=== PATIENT | female | born 1935 | race Caucasian/White ===

== ENCOUNTER 2016-08-22 11:41 | Inpatient (IN) | payer OTHER, BC ==
[~2016-08-22] VITALS: Ht 167.6 cm; Wt 42.6 kg
--- NOTE | 2016-08-22 11:49 | NUR ---
PT WHEELCHAIR ASSITED TO BED 1 AT THIS TIME.
--- NOTE | 2016-08-22 11:52 | NUR ---
80F BIB DAUGHTER IN LAW C/O LEFT FACIAL DROOP X [phone] TODAY; DAUGHTER IN LAW STATES SHE WAS LAST SEEN AT [facility] LAST NIGHT; PT NOTED W/ SEVERE WEAKNESS TO LEFT SIDE OF BODY AND LEFT FACIAL DROOP; A&OX4 W/ SLURRED SPEECH; PT ABLE TO FOLLOW COMMANDS AT THIS TIME; BL LUNG SOUNDS CLEAR, RR EVEN/UNLABORED, PT DENIES N/V/D OR PAIN AT THIS TIME; SKIN IS WARM/DRY/INTACT; PT UNABLE TO AMBULATE D/T SEVER LEFT SIDED WEAKNESS; PT PLACED IN GOWN/ON MONITOR, RESTING IN BED W/ HOB ELEVATED AND IN LOWEST POSITION; POSITIONED FOR COMFORT; DAUGHTER IN LAW AT BEDSIDE; ER MD MADE AWARE OF STATUS. WILL CONTINUE TO MONITOR.
--- NOTE | 2016-08-22 11:54 | NUR ---
Patient being evaluated by DR. DELUNA
[2016-08-22 11:56] VITALS: BP 175/58
--- NOTE | 2016-08-22 11:56 | NUR ---
PT STATES DOES NOT WANT OXYGEN AT THIS TIME; O2 SAT 97 % ON ROOM AIR AT THIS TIME; RR EVEN/UNLABORED, WILL CONTINUE TO MONITOR.
--- NOTE | 2016-08-22 12:15 | NUR ---
XRAY AT BEDSIDE.
--- NOTE | 2016-08-22 12:25 | NUR ---
WARM BLANKET PROVIDED TO PT FOR COMFORT.
[2016-08-22] MEDS ORDERED: ASPIRIN 325 MG TAB PO ONE (12:45)
--- NOTE | 2016-08-22 13:10 | NUR ---
CALLED ICU TO GIVE REPORT; HALLIE ALVAREZ WILL CALL BACK; IN ISOLATION AT THIS TIME.
--- NOTE | 2016-08-22 13:18 | NUR ---
PER DIRECTOR ENMANUEL, PT MAY BE RELOCATED TO TELEMTRY; WILL CALL REPORT WHEN OFFICIAL ROOM ASSIGNED. WILL CONTINUE TO MONITOR.
--- NOTE | 2016-08-22 14:17 | NUR ---
REPORT GIVEN TO HALLIE PELAEZ.
--- NOTE | 2016-08-22 14:24 | NUR ---
Patient will be admitted to care of DR. RIOS. Admited to TELEMETRY Will go to room 108B. Belongings list completed. Report to HALLIE PELAEZ.
--- NOTE | 2016-08-22 14:30 | NUR ---
PT ARRIVED TO UNIT FROM ER VIA GURNEY, PT IS AAOX3/4 WITH SLURRED SPEECH AND LEFT SIDED WEAKNESS, PT IS ON ROOM AIR. VS OF TEMP 98.0, BP 144/59, HR 78, RR 20, SAT 96%, SKIN INTACT, DAUGHTER ALEXUS AT BEDSIDE, INITIAL ASSESSMENT COMPLETED, REVIEW PLAN OF CARE WITH PT, PT VERBALIZED UNDERSTANDING, ORIENTED PT TO ROOM AND HOSPITAL ENVIRONMENT. ALL FALL PRECAUTIONS MET, CALL LIGHT WITHIN REACH. WILL CONTINUE TO MONITOR.
[2016-08-22 16:00] VITALS: BP 122/48
--- NOTE | 2016-08-22 16:08 | NUR ---
PT CURRENTLY AWAKE RESTING IN BED, CALL LIGHT WITHIN [facility]. WILL CONTINUE TO MONITOR.
--- NOTE | 2016-08-22 17:45 | NUR ---
PT CURRENTLY SLEEPING, CALL LIGHT WITHIN REACH. WILL CONTINUE TO MONITOR.
--- NOTE | 2016-08-22 18:15 | NUR ---
ALL NEEDS MET, CALL LIGHT WITHIN REACH. WILL CONTINUE TO MONITOR.
--- NOTE | 2016-08-22 19:20 | NUR ---
ENDORSED PLAN OF CARE TO NIGHT NURSE.
[2016-08-22] MEDS ORDERED: ACETAMINOPHEN 325 MG TAB PO PRN (19:45)
[2016-08-22] MEDS ORDERED: ONDANSETRON 4 MG/2 ML VIAL IVP PRN (19:45)
[2016-08-22] MEDS ORDERED: MORPHINE SULFATE 2 MG/ML SYR IVP PRN (19:45)
[2016-08-22] MEDS ORDERED: DOCUSATE SODIUM 100 MG GELCAP PO PRN (19:45)
--- NOTE | 2016-08-22 19:45 | NUR ---
RECEIVED PT IN STABLE CONDITION FROM AM NURSE. AWAKE,ALERT AND ORIENTED X3-4 BUT WITH PERIODS OF FORGETFULNESS. MED SURG PT. BEDREST . WITH NO ACUTE DISTRESS NOTED. ON O2 3L/NC. IVF INFUSING WELL ON THE RT HAND #24. ANOTHER HL ON SAME HAND #24. PLAN OF CARE DISCUSSED AND VERBALIZED UNDERSTANDING. BED ON LOW POSITION . SIDE RAILS UP X2. CALL LIGHT PLACED WITHIN EASY REACH. WILL CONTINUE TO MONITOR.
[2016-08-22] MEDS: ASPIRIN 81 MG TAB.CHEW PO SCH (19:50)
[2016-08-22] MEDS: ATORVASTATIN 20 MG TAB PO SCH (19:50)
--- NOTE | 2016-08-22 19:55 | NUR ---
PT HAS AN OLD THICK SCAB ON THE RT LOWER LEG.
[2016-08-22 20:00] VITALS: BP 153/61
--- NOTE | 2016-08-22 20:00 | NUR ---
APPLIED SCD MACHINE ON BLE ORDERED. PT MADE AWARE OF THE PURPOSE OF THE MACHINE. VERBALIZED UNDERSTANDING.
[2016-08-22] MEDS: NACL 0.9% 1,000 ML IV SCH (20:43)
--- NOTE | 2016-08-22 21:54 | NUR ---
PAGED DR. RIOS FOR MAGNESIUM LEVEL 1.6 DR. ANN SCHOOL PSYCHOLOGIST ASSISTANT . CALLED BACK AND MADE AWARE. WILL DO ORDER.
[2016-08-22] MEDS ORDERED: MAG SULF 2000 MG/WATER PREMIX 50 ML IV SCH (22:00)
[2016-08-22] MEDS ORDERED: ADVAIR DISKUS 21 DSK IH (23:17)
[2016-08-22] MEDS ORDERED: SPIRIVA MD18 MCG/CAP INH (23:17)
[2016-08-22] MEDS ORDERED: SINGULAIR10 MG PO (23:17)
[2016-08-23 00:30] VITALS: BP 155/68
--- NOTE | 2016-08-23 00:38 | NUR ---
PAGED DR. RIOS FOR SHAHBAZ CAROTID US RESULT. ELLIS SAMUELS FLITCH HANGER. WILL WAIT FOR CALL BACK.
--- NOTE | 2016-08-23 00:44 | NUR ---
DR. ANN CALLED BACK .MADE AWARE OF THE RESULT. NO NEW ORDER MADE.
--- NOTE | 2016-08-23 02:30 | NUR ---
MADE ROUNDS. PT IS ASLEEP. NO S/S OF ANY DISCOMFORT NOR DISTRESS NOTED. WILL CONTINUE TO MONITOR.
--- NOTE | 2016-08-23 03:50 | NUR ---
PT HAS BEEN MOVING HER RT LEG. THE SCD WAS PARTLY REMOVED. NOTICED RT LEG SCAB PINK /RED LIKE SCRATCHED AND HAS SCANTY DRAIN. DISCONTINUED RT LOWER LEG SCD.
[2016-08-23 04:00] VITALS: BP 148/66
--- NOTE | 2016-08-23 05:30 | NUR ---
SLEEPING AT THIS TIME. NO S/S OF ANY DISCOMFORT NOR DISTRESS NOTED.
[2016-08-23] MEDS: NACL 0.9% 1,000 ML IV SCH ×2 (07:02→17:43)
--- NOTE | 2016-08-23 07:28 | NUR ---
DR. RIOS AND THE GROUP HERE. MADE AWARE OF THE URINE WITH 4 BACTERIA.
--- NOTE | 2016-08-23 07:30 | NUR ---
ENDORSED PT IN STABLE CONDITION TO AM NURSE.
--- NOTE | 2016-08-23 07:31 | NUR ---
RECEIVED REPORT FROM NIGHT NURSE HALLIE PAL. PATIENT APPEARED TO BE AWAKE, ALERT AND RESTING WELL IN BED. REMAINED CALM. NO SOB OR SIGN OF RESPIRATORY DISTRESS NOTED AT THIS TIME. INITIAL ASSESSMENT DONE. NOTED PATIENT'S FACE DROOPING TO LEFT SIDE, AND LEFT SIDED WEAKNESS. PATIENT ABLE TO MOVE HER RIGHT EXTREMITIES. PATIENT DENIED DISCOMFORT OR PAIN AT THIS TIME. AAOX3 WITH FORGETFULNESS. IV 20G TO RIGHT AC INTACT AND INFUSING WELL WITH IV FLUID, INSTRUCTED PATIENT TO PUSHED CALL LIGHT WITH NEEDED HELPS, PLAN OF CARE AND PAIN MANAGEMENT DISCUSSED, PATIENT VERBALIZED UNDERSTANDING. HEAD OF BED ELEVATED. CALL LIGHT WITHIN REACH. WILL CONTINUE TO MONITOR.
[2016-08-23 08:00] VITALS: BP 118/42
--- NOTE | 2016-08-23 08:20 | NUR ---
PATIENT HAS BEEN SCREENED AND CATEGORIZED HIGH NUTRITION RISK. PATIENT WILL BE SEEN WITHIN 1-2 DAYS OF ADMISSION. 08/23/16-08/24/[address]
[2016-08-23] MEDS: ATORVASTATIN 20 MG TAB PO SCH ×2 (09:00→17:40)
[2016-08-23] MEDS: ASPIRIN 81 MG TAB.CHEW PO SCH (09:00)
[2016-08-23] MEDS ORDERED: MAG SULF 2000 MG/WATER PREMIX 50 ML IV SCH (10:30)
--- NOTE | 2016-08-23 10:46 | NUR ---
PATIENT STILL APPEARED TO BE SLEEPY AND DROWSY. NO SIGN OF DISTRESS NOTED. NO CHANGE IN CONDITION NOTED. HEAD OF BED ELEVATED FOR COMFORT. DAUGHTER AT BEDSIDE. CALL LIGHT WITHIN REACH. WILL CONTINUE TO MONITOR. Addendum: 08/23/16 at 1047 by Trevon Curry RN WRONG PATIENT.
--- NOTE | 2016-08-23 10:48 | NUR ---
PATIENT STILL APPEARED TO BE ASLEEP BUT EASILY AROUSAL TO NAME CALLED. NO SIGN OF DISTRESS NOTED. DENIED ANY DISCOMFORT. HEAD OF BED ELEVATED FOR SAFETY. CALL LIGHT WITHIN REACH. WILL CONTINUE TO MONITOR.
--- NOTE | 2016-08-23 11:14 | NUR ---
OTHER IV INFUSING AT THIS TIME. WILL HANG MAGNESIUM IVPB WHEN FINISHED.
[2016-08-23 12:00] VITALS: BP 139/57
[2016-08-23] MEDS ORDERED: ASPIRIN 325 MG TAB PO SCH ×2 (13:55→17:30)
--- NOTE | 2016-08-23 15:27 | NUR ---
NOTIFIED DR CAMPBELL AND HE AWARE PATIENT'S NEWEST ABNORMAL HEAD CT FINDING AT 1350 08/23/16. MD ALSO AWARE PATIENT IS NPO. LIPITOR WAS NOT GIVEN DUE TO NPO STATUS. NO NEW ORDERS RECEIVED AT THIS TIME.
--- NOTE | 2016-08-23 15:29 | NUR ---
PATIENT RESTING IN BED. NO CHANGE IN CONDITION NOTED. LEFT SIDED WEAKNESS STILL NOTED WITH LEFT FACE DROOPING. MD AWARE.
[2016-08-23 16:00] VITALS: BP 136/67
--- NOTE | 2016-08-23 16:45 | NUR ---
* ST NOTE * Bedside Dysphagia and Oral Mechanism exams completed at bedside with pt's physician and daughter in law present. Pt consenting to evaluation with pt's daughter in law present. See evaluation report for further details. Pt tolerating 6/6 alternating PO trials of puree apple sauce 3-5 CCs at a time via a teaspoon w/out s/s of aspiration as well as exhibiting occasional to no residue in oral cavity after PO intake. Pt tolerating 3/3 successive sips of thin liquid apple juice via a straw as well as 2/2 alternating PO trials of thin liquid apple juice via a cup, but exhibiting delayed residual throat clearing and minimal cough after PO intake of thin liquids. Pt however tolerating 5/5 alternating PO trials of nectar-thick apple juice 3-5 CCs at a time via a teaspoon w/out s/s of aspiration, exhibiting clear voicing WFL w/out wet or gargly vocal quality after PO intake of NTL. Pt, caregiver/qhzedayc-he-qvx and physician education completed regarding results of evaluation; benefits of abiding by aspiration precautions and recommended PO diet consistency; as well as prognosis for improvement; with pt, caregiver/ifhonxda-wo-ehq and physician all agreeable with and verbalizing understanding of clinician's recommendations. Recommend: - PO diet consistency of Puree textures with Leota-thickened liquids for all meals - Close supervision during PO intake to assure aspiration precautions are in place - Assistance with feeding for all meals No further ST follow up recommended at this time. G8996 CK G8997 CJ G8998 CJ NOMS Level 3 Time In/Out: 16:00 - 16:45
[2016-08-23] MEDS ORDERED: ATORVASTATIN 20 MG TAB PO SCH (17:30)
[2016-08-23] MEDS: ASPIRIN 325 MG TAB PO SCH (17:40)
--- NOTE | 2016-08-23 17:41 | NUR ---
DUE PO MEDICATIONS WITH APPLE SAUCE GIVEN, PATIENT TOLERATED WELL. NO ASPIRATION NOTED. NO SIGN OF DISTRESS NOTED. NO CHANGE IN CONDITION NOTED. PATIENT REMAINED CALM. HEAD OF BED ELEVATED. CALL LIGHT WITHIN REACH. WILL CONTINUE TO MONITOR.
--- NOTE | 2016-08-23 19:30 | NUR ---
RECEIVED REPORT FROM RIKI STERLING AT BEDSIDE. PT IS ALERT AWAKE ORIENTED X1 WITH CONFUSION. NO S/S OF RESPIRATORY DISTRESS OR SOB NOTED. NO C/O PAIN OR ANY DISCOMFORT AT THIS TIME. PLAN OF CARE REVIEWED TO PT BUT UNABLE TO COMPREHEND. CALL LIGHT WITHIN REACH. WILL CONTINUE TO MONITOR.
--- NOTE | 2016-08-23 19:30 | NUR ---
ENDORSED PATIENT CURRENT PLAN OF CARE TO NIGHT NURSE HALLIE PAGAN. PATIENT RESTING WELL IN BED WITH NO SIGN OF DISTRESS NOTED.
[2016-08-23 20:00] VITALS: BP 143/66
[2016-08-23] MEDS: SACCHAROMYCES 250 MG CAP PO SCH (20:32)
[2016-08-23] MEDS: levETIRAcetam 1,000 MG in NACL 0.9% 100 ML IV SCH (20:32)
[2016-08-23] MEDS: MONTELUKAST SODIUM 10 MG TAB PO SCH (20:32)
[2016-08-23] MEDS ORDERED: FLUTICASONE 250 MCG/SALMETEROL 50 MCG DISK IH SCH (21:00)
[2016-08-24] VITALS: BP 140/78
--- NOTE | 2016-08-24 00:30 | NUR ---
PT IS ASLEEP RIGHT NOW BUT EASILY AROUSABLE. NO S/S OF ANY DISCOMFORT AT THIS TIME. ALL NEEDS ARE ATTENDED. CALL LIGHT WITHIN REACH. WILL CONTINUE TO MONITOR.
[2016-08-24 04:00] VITALS: BP 125/70
[2016-08-24] MEDS: NACL 0.9% 1,000 ML IV SCH ×2 (04:46→16:23)
--- NOTE | 2016-08-24 05:15 | NUR ---
AM CARE RENDERED. BED LINEN CHANGED. REPOSITIONED PATIENT. KEPT CLEAN AND DRY. CALL LIGHT WITHIN REACH. WILL CONTINUE TO MONITOR.
--- NOTE | 2016-08-24 07:19 | NUR ---
PT HAS NO S/S OF ANY DISCOMFORT. PLAN OF CARE WILL BE ENDORSED TO AM SHIFT NURSE FOR CONTINUITY OF CARE.
--- NOTE | 2016-08-24 07:30 | NUR ---
RECEIVED ON BED AAOX1, CONFUSED, FOLLOWING SIMPLE COMMANDS. NO SOB NOTED. NO C/O PAIN AT THIS TIME. IV TO RT HAND PATENT AND INTACT. CHEST CLEAR. ABDOMEN SOFT, BOWEL SOUNDS PRESENT. BED ON LOW POSITION. BED ALARM ON. INSTRUCTED PT TO CALL FOR ASSISTANCE, CALL LIGHT WITHIN REACH. VERBALIZED PARTIAL UNDERSTANDING.
[2016-08-24 08:00] VITALS: BP 155/53
[2016-08-24] MEDS: levETIRAcetam 1,000 MG in NACL 0.9% 100 ML IV SCH ×2 (08:47→20:07)
--- NOTE | 2016-08-24 10:20 | NUR ---
LEFT AC IV ESTABLISHED FOR IV CONTRAST, GAUGE 20, [place].
--- NOTE | 2016-08-24 10:25 | NUR ---
CALLED PT'S NEXT OF KIN CARLOS LUGO ([phone]) FOR TELEPHONE CONSENT. NO ANSWER, MESSAGE LEFT. AWAITING FOR CALLED BACK.
--- NOTE | 2016-08-24 10:45 | NUR ---
TELEPHONE CONSENT OBTAINED THROUGH TELEPHONE BY PT'S DAUGHTER IN LAW CARLOS LUGO NEXT OF KIN. PROCEDURE'S RISKS AND BENEFITS EXPLAINED, VERBALIZED UNDERSTANDING.
[2016-08-24] MEDS: ASPIRIN 325 MG TAB PO SCH (10:54)
[2016-08-24] MEDS: ATORVASTATIN 20 MG TAB PO SCH (10:54)
[2016-08-24] MEDS: SACCHAROMYCES 250 MG CAP PO SCH ×2 (10:54→20:07)
[2016-08-24 12:00] VITALS: BP 155/71
[2016-08-24] MEDS ORDERED: POTASSIUM CHLORIDE 10 MEQ TABER PO SCH (14:30)
--- NOTE | 2016-08-24 14:47 | NUR ---
08/24/16 RD INITIAL ASSESSMENT COMPLETED PLEASE REFER TO NUTRITION ASSESSMENT UNDER CARE ACTIVITY FOR ESTIMATED NUTRITIONAL NEEDS. RD RECOMMENDATIONS: 1. CONTINUE CARDIAC PUREE THICK LIQUID DIET MEDICALLY APPROPRIATE. 2. ENCOURAGE INCREASED PO INTAKE. --NOTE RN REPORT PT WITH POOR APPETITE 3. IF PT CONTINUES TO HAVE POOR PO INTAKE, CONSIDER ADDING AN ORAL SUPPLEMENT. 4. RD WILL F/U 2-3 DAYS; HIGH RISK PRICILLA DAVALOS, RD
[2016-08-24] MEDS ORDERED: POTASSIUM CHLORIDE 20% 40 MEQ/15 ML UDC PO SCH (15:18)
[2016-08-24] MEDS ORDERED: POTASSIUM CHLORIDE 40 MEQ, LIDOCAINE 1% 25 MG in NACL 0.9% 250 ML IV SCH (15:30)
[2016-08-24 16:00] VITALS: BP 133/64
--- NOTE | 2016-08-24 19:30 | NUR ---
PT AWAKE. NO SOB NOTED. NO COMPLAINTS MADE. FAMILY AT BEDSIDE. ENDORSED TO NEXT SHIFT NURSE FOR CONTINUITY OF CARE.
--- NOTE | 2016-08-24 19:31 | NUR ---
RECEIVED REPORT FROM DAY SHIFT NURSE. PT I AAOX1, FAMILY AT BEDSIDE. HAS NO COMPLAIN OF PAIN. ON ROOM AIR, NO S/S OF RESPIRATORY DISTRESS/DISCOMFORT NOTED. IV SITE IS PATENT AND INTACT. SKIN IS INTACT, WARM TO TOUCH. SCD IN PLACED. PLAN OF CARE DISCUSSED, REENFORCEMENT NEEDED. SAFETY MEASURES CHECKED, CALL LIGHT WITHIN REACH. WILL CONTINUE TO MONITOR.
[2016-08-24 20:00] VITALS: BP 155/79
[2016-08-24] MEDS: MONTELUKAST SODIUM 10 MG TAB PO SCH (20:07)
--- NOTE | 2016-08-24 20:12 | NUR ---
DUE MEDS GIVEN. MEDS INFORMATION WAS GIVEN, BENEFITS AND S/E. PT TOLERATED WELL.
[2016-08-25] VITALS: BP 139/53
--- NOTE | 2016-08-25 | NUR ---
V/S CHECKED AND STABLE. PT HAS NO S/S OF RESPIRATORY DISTRESS/DISCOMFORT NOTED.
[2016-08-25] MEDS: NACL 0.9% 1,000 ML IV SCH ×2 (03:21→14:37)
[2016-08-25 04:00] VITALS: BP 136/64
--- NOTE | 2016-08-25 04:17 | NUR ---
PT IS SLEEPING, NO S/S OF DISTRESS/DISCOMFORT.
--- NOTE | 2016-08-25 06:08 | NUR ---
MORNING CARE DONE. GOWN CHANGED. REPOSITIONED THE PATIENT. NO SIGNS OF DISTRESS NOTED.
--- NOTE | 2016-08-25 07:09 | NUR ---
ENDORSED REPORT TO DAY SHIFT NURSE FOR CONTINUITY OF CARE. PT IS STABLE.
--- NOTE | 2016-08-25 07:10 | NUR ---
RECEIVED REPORT FROM FAMILY RESOURCE MANAGEMENT PROFESSOR HALLIE JOHNSON. PT IS A/O X 1, BEDBOUND. RFA 22G IV INTACT AND PATENT. LAC 20G SL INTACT. RLE HEALED SCAB. NO S/S OF ACUTE CARDIAC/RESPIRATORY DISTRESS OR DISCOMFORT. SAFETY MEASURES IN PLACE. FALL RISK PRECAUTIONS IN PLACE. CALL LIGHT WITHIN REACH. WILL CONTINUE PLAN OF CARE AND CONTINUE TO MONITOR.
[2016-08-25 08:00] VITALS: BP 134/85
[2016-08-25] MEDS: ATORVASTATIN 20 MG TAB PO SCH (08:29)
[2016-08-25] MEDS: SACCHAROMYCES 250 MG CAP PO SCH ×2 (08:29→20:59)
[2016-08-25] MEDS: ASPIRIN 325 MG TAB PO SCH (08:29)
[2016-08-25] MEDS: levETIRAcetam 1,000 MG in NACL 0.9% 100 ML IV SCH ×2 (09:08→21:00)
[2016-08-25] MEDS ORDERED: CLOPIDOGREL 75 MG TAB PO SCH (09:19)
--- NOTE | 2016-08-25 10:12 | NUR ---
PT IS SLEEPING, TIRED FROM PT, WAS ONLY ABLE TO STAND WITH ASSIST. NO S/S OF ACUTE DISTRESS OR DISCOMFORT. CALL LIGHT WITHIN REACH, WILL CONTINUE TO MONITOR.
--- NOTE | 2016-08-25 10:49 | NUR ---
SS NOTE: PER TED FROM [facility] ([phone]), PT CAN GO TO ROOM 29B UNDER DR. Hi GUZMAN UPON DISCHARGE. I SPOKE WITH DTR-IN-LAW/CAREGIVER - CARLOS. SHE WAS MADE AWARE OF PT'S DISCHARGE PLAN AND IS IN AGREEMENT WITH PT GOING TO [facility] UPON DISCHARGE.
[2016-08-25 12:00] VITALS: BP 131/60
--- NOTE | 2016-08-25 12:16 | NUR ---
PT IS SLEEPING. NO S/S OF ACUTE DISTRESS OR DISCOMFORT. CALL LIGHT WITHIN REACH. WILL CONTINUE TO MONITOR.
--- NOTE | 2016-08-25 14:58 | NUR ---
PT IS RESTING. NO S/S OF ACUTE DISTRESS OR DISCOMFORT. CALL LIGHT WITHIN REACH. WILL CONTINUE TO MONITOR.
[2016-08-25 16:00] VITALS: BP 142/67
--- NOTE | 2016-08-25 16:51 | NUR ---
PT IS SLEEPING. NO S/S OF ACUTE DISTRESS OR DISCOMFORT. CALL LIGHT WITHIN REACH. WILL CONTINUE TO MONITOR.
--- NOTE | 2016-08-25 19:12 | NUR ---
ENDORSED TO ASSEMBLY INSPECTOR HALLIE DE LEON. PT IS SLEEPING. PT HAS NO S/S OF ACUTE DISTRESS OR DISCOMFORT. PT IN STABLE CONDITION. CALL LIGHT WITHIN REACH.
--- NOTE | 2016-08-25 19:25 | NUR ---
RECEIVED REPORT FROM JOSHUA RN FOR CONTINUITY OF CARE. PATIENT IS A&OX1/2, EXPLAINED PLAN OF CARE TO PATIENT. SHIFT ASSESSMENT DONE, VS TAKEN STABLE. NO S/S OF RESPIRATORY DISTRESS NOTED ON ROOM AIR. PATIENT DENIES PAIN AT THIS TIME. IV LT AC 20 GAUGE PATENT AND INFUSING FLUIDS WELL. SKIN INTACT. SAFETY/FALL PRECAUTIONS ENFORCED. SCDS IN PLACE. CALL LIGHT WITHIN REACH. WILL CONTINUE TO MONITOR.
[2016-08-25 19:55] VITALS: BP 142/57
[2016-08-25] MEDS: MONTELUKAST SODIUM 10 MG TAB PO SCH (20:59)
--- NOTE | 2016-08-25 21:14 | NUR ---
DUE MEDICATIONS ADMINISTERED, PATIENT TOLERATED WELL. REPOSITIONED PATIENT. CALL LIGHT WITHIN REACH.
--- NOTE | 2016-08-25 23:52 | NUR ---
VS TAKEN, STABLE. IV TO LT ARM INFILTRATED. INSERTED NEW IV LINE TO LT WRIST 22 GAUGE. PATIENT IS REMOVING SCDS AND TELE MONITOR, REAPPLIED AND MADE COMFORTABLE.
[2016-08-26] VITALS: BP 162/73
[2016-08-26] MEDS: NACL 0.9% 1,000 ML IV SCH ×2 (01:54→12:29)
--- NOTE | 2016-08-26 02:01 | NUR ---
PT IS AWAKE RESTING IN BED. NO S/S OF DISTRESS NOTED.
[2016-08-26 04:00] VITALS: BP 149/53
--- NOTE | 2016-08-26 04:11 | NUR ---
VS TAKEN, STABLE. PATIENT IS SLEEPING. NO S/S OF DISTRESS OR DISCOMFORT NOTED.
--- NOTE | 2016-08-26 06:22 | NUR ---
PATIENT IS AWAKE PULLING OFF TELE MONITOR, REAPPLIED AND REPOSITIONED PATIENT.
--- NOTE | 2016-08-26 07:15 | NUR ---
ENDORSED PATIENT TO ANDREW RN FOR CONTINUITY OF CARE, PATIENT IS STABLE.
--- NOTE | 2016-08-26 07:16 | NUR ---
RECEIVED PT FROM HALLIE DE LEON AWAKE AND LYING ON BED, AAOX1, WITH IV ON LEFT WRIST AT 22G INFUSING FLUIDS WELL. WITH LEFT SIDED FACIAL DROOPING AND LEFT ARM WEAKNESS. DISCUSSED PLAN OF CARE, PT VERBALIZED UNDERSTANDING BUT REINFORCEMENT NEEDED. SAFETY PRECAUTIONS ENFORCED. CALL LIGHT WITHIN REACH, WILL CONTINUE TO MONITOR.
[2016-08-26 08:00] VITALS: BP 141/103
[2016-08-26] MEDS: ATORVASTATIN 20 MG TAB PO SCH (08:13)
[2016-08-26] MEDS: SACCHAROMYCES 250 MG CAP PO SCH (08:13)
[2016-08-26] MEDS: ASPIRIN 325 MG TAB PO SCH (08:14)
--- NOTE | 2016-08-26 08:26 | NUR ---
DUE MEDS GIVEN ORDERED, PT TOLERATED WELL. ALL NEEDS MET AT THIS TIME, WILL CONTINUE TO MONITOR.
[2016-08-26] MEDS: levETIRAcetam 1,000 MG in NACL 0.9% 100 ML IV SCH (08:34)
[2016-08-26] MEDS ORDERED: CLOPIDOGREL 75 MG TAB PO SCH (09:00)
--- NOTE | 2016-08-26 11:14 | NUR ---
PT SLEEPING COMFORTABLY, KEPT CLEAN AND DRY. ALL NEEDS MET AT THIS TIME, WILL CONTINUE TO MONITOR.
[2016-08-26 12:00] VITALS: BP 136/48
--- NOTE | 2016-08-26 12:05 | NUR ---
LUNCH SERVED, PT HAS FAIR APPETITE. ALL NEEDS MET AT THIS TIME, WILL CONTINUE TO MONITOR.
--- NOTE | 2016-08-26 14:13 | NUR ---
PT AWAKE WHILE WATCHING TV, NO S/S OF DISTRESS AT THIS TIME. CALL LIGHT WITHIN REACH, WILL CONTINUE TO MONITOR.
[2016-08-26] MEDS ORDERED: COLACE100 M1 PO (14:22)
[2016-08-26] MEDS ORDERED: HEPARIN SOD5000 U/M1 SUBQ (14:22)
[2016-08-26] MEDS ORDERED: PLAVIX75 M1 PO (14:22)
[2016-08-26] MEDS ORDERED: ATORVASTATIN CA20 MG PO (14:22)
[2016-08-26] MEDS ORDERED: ASPIRIN325 M2 PO (14:22)
[2016-08-26] MEDS ORDERED: FLORASTOR 33 MG1 CAP PO (14:32)
[2016-08-26] MEDS ORDERED: CIPRO500 MG PO (14:32)
[2016-08-26] MEDS ORDERED: KEPPRA1000 MG PO (14:34)
[2016-08-26] MEDS ORDERED: ACETAMINOPHEN325 M2 PO (14:36)
--- NOTE | 2016-08-26 14:59 | NUR ---
SPOKE TO DAUGHTER CARLOS REGARDING TRANSFER
--- NOTE | 2016-08-26 15:06 | NUR ---
SPOKE TO MARIA ELENA STERLING OF [facility] TO GIVE REPORT
--- NOTE | 2016-08-26 15:13 | NUR ---
PHYSICAL THERAPY CO-SIGN The Physical Therapy Progress Notes documented by Sod Stripper have been reviewed. Reviewed/Co-Signed by: Gabriela Guzman Documentation Done by:ANNY CORTÉS REVIEWED W/ AUBREY. Addendum: 08/26/16 at 1514 by Gabriela Guzman PT Amended: Links added.
[2016-08-26 16:00] VITALS: BP 141/82
--- NOTE | 2016-08-26 16:20 | NUR ---
PT PICKED UP BY ALEIDA [facility]IA [facility] TO [facility] IN STABLE CONDITIO. DISCHARGE INSTRUCTIONS GIVEN TO PT, ID WRISTBAND, TELE AND IV ACCESS REMOVED, CATHETER TIP INTACT. REPORT GIVEN TO ALEIDA. PT LEFT IN STABLE CONDITION
[2016-08-26] MEDS ORDERED: ALBUTEROL 0.083% 2.5 MG/3 ML NEBU INH SCH (19:00)
[2016-08-26] MEDS ORDERED: BUDESONIDE 0.5 MG/2 ML NEBU INH SCH (19:30)
== END 2016-08-26 16:20 | DRG 64 ==
LOC: MED 11:41 → MIC 12:39 → MTU 14:16
PROVIDERS: ADMIT Family Medicine; ATTEND Family Medicine
DX: I63.8 Other cerebral infarction (principal); G93.41 Metabolic encephalopathy; N17.0 Acute kidney failure with tubular necrosis; G81.94 Hemiplegia, unspecified affecting left nondominant side; N39.0 Urinary tract infection, site not specified; R29.810 Facial weakness; J44.9 Chronic obstructive pulmonary disease, unspecified; J45.909 Unspecified asthma, uncomplicated; E83.51 Hypocalcemia; E83.42 Hypomagnesemia; E78.5 Hyperlipidemia, unspecified; I65.21 Occlusion and stenosis of right carotid artery; I34.1 Nonrheumatic mitral (valve) prolapse; I11.9 Hypertensive heart disease without heart failure; E87.6 Hypokalemia; B96.20 Unspecified Escherichia coli [E. coli] as the cause of diseases classified elsewhere; Z87.891 Personal history of nicotine dependence

== ENCOUNTER 2016-08-29 10:17 | Emergency (ER) | payer OTHER, BC ==
[~2016-08-29] VITALS: Ht 165.1 cm; Wt 49.9 kg
[~2016-08-29 10:17] MED LIST: ACETAMINOPHEN325 M2 PO; ADVAIR DISKUS 21 DSK IH; ASPIRIN325 M2 PO; ATORVASTATIN CA20 MG PO; CIPRO500 MG PO; COLACE100 M1 PO; FLORASTOR 33 MG1 CAP PO; HEPARIN SOD5000 U/M1 SUBQ; KEPPRA1000 MG PO; PLAVIX75 M1 PO; SINGULAIR10 MG PO; SPIRIVA MD18 MCG/CAP INH
[2016-08-29 10:20] VITALS: BP 140/70
--- NOTE | 2016-08-29 11:41 | NUR ---
Dr. Brody evaluating patient at bedside.
--- NOTE | 2016-08-29 11:53 | NUR ---
80/F biba from SNF for evaluation of left arm pain. Per EMS, pt was c/o left arm pain at the facility but patient is denying having pain at this time. Pt was recently admitted here for CVA. Pt has left sided weakness and left sided facial droop. Pt is AAOX1, name. Pt is confused, does not recall why they brought her, and thinks she is at her SNF. Pt does not recall the date. Patient follows commands. Patient placed on monitor and storage bin tender, pulse oximetry and blood pressure monitoring. VSS.
--- NOTE | 2016-08-29 12:06 | NUR ---
X-Ray at bedside.
--- NOTE | 2016-08-29 14:24 | NUR ---
Patient appears to be resting comfortably in bed. Vital Signs within normal limits. Respirations even and unlabored.
--- NOTE | 2016-08-29 14:26 | NUR ---
ETA for [facility] 30-45 mins
--- NOTE | 2016-08-29 14:38 | NUR ---
Brief changed. New dry clean brief applied to patient. Pt tolerated well. Warm blanket provided. Bed placed in lowest position. VSS. Pt appears calm and relaxed.
[2016-08-29 14:53] VITALS: BP 115/83
--- NOTE | 2016-08-29 14:54 | NUR ---
Patient discharged with v/s stable. Written and verbal after care instructions given and explained. Patient verbalized understanding. Ambulance Transport with to half-way. All questions addressed prior to discharge. Advised to follow up with PMD.
--- NOTE | 2016-08-29 14:54 | NUR ---
Chart checked and completed. The patient's care was reviewed and supervised by Yaniv Rivera RN.
== END 2016-08-29 14:54 ==
LOC: MED 10:17
DX: M79.602 Pain in left arm (principal); J43.9 Emphysema, unspecified; Z86.73 Personal history of transient ischemic attack (TIA), and cerebral infarction without residual deficits; Z79.82 Long term (current) use of aspirin; Z79.899 Other long term (current) drug therapy

== ENCOUNTER 2016-09-19 08:38 | Inpatient (IN) | payer OTHER, BC ==
[~2016-09-19] VITALS: Ht 162.6 cm; Wt 46.3 kg
[2016-09-19 08:38] VITALS: BP 119/55
--- NOTE | 2016-09-19 08:38 | NUR ---
PT BIBA TO BED 1 AT THIS TIME.
--- NOTE | 2016-09-19 08:38 | NUR ---
DR. SANCHEZ AT BEDSIDE UPON ARRIVAL EVALUATING PT.
[2016-09-19] MEDS ORDERED: PIPERACILLIN/TAZOBACTAM 3.375 GM in DEXTROSE 5% 50 ML IV ONE (08:45)
[2016-09-19] MEDS ORDERED: NACL 0.9% 1,000 ML IV ONE ×3 (08:45→19:55)
[2016-09-19] MEDS ORDERED: VANCOMYCIN 1,000 MG in DEXTROSE 5% 250 ML IV ONE (08:45)
[2016-09-19] MEDS ORDERED: PIPER/TAZO 3.375GM/D5W PREMIX 50 ML IV SCH (09:07)
[2016-09-19] MEDS ORDERED: VANCOMYCIN 1GM/DEXT 5% PREMIX 200 ML IV SCH ×2 (09:08→12:23)
--- NOTE | 2016-09-19 09:16 | NUR ---
PTTO CT SCAN
--- NOTE | 2016-09-19 09:37 | NUR ---
BUN-75, DR SANCHEZ INFORMED
--- NOTE | 2016-09-19 09:40 | NUR ---
LACTIC ACID 5.1
--- NOTE | 2016-09-19 09:42 | NUR ---
TROP 0.096
[2016-09-19] MEDS ORDERED: HYDROcodone/APAP 5/325 MG 1 TAB TAB PO PRN (10:20)
[2016-09-19] MEDS ORDERED: MORPHINE SULFATE 2 MG/ML SYR IVP PRN (10:20)
[2016-09-19] MEDS ORDERED: DOCUSATE SODIUM 100 MG GELCAP PO PRN (10:20)
[2016-09-19] MEDS ORDERED: ACETAMINOPHEN 325 MG TAB PO PRN (10:20)
[2016-09-19] MEDS ORDERED: ONDANSETRON 4 MG/2 ML VIAL IVP PRN (10:20)
[2016-09-19] MEDS ORDERED: NACL 0.9% 500 ML IV SCH (10:30)
--- NOTE | 2016-09-19 10:43 | NUR ---
REPORT GIVEN TO RN, UPDATED ON STATUS, LABS AND VITALS. AWARE THAT PT NEEDS VANCO, CURRENTLY ZOSYN INFUSING TO LEFT HAND IV, INFUSING WELL. PT STABLE FOR TRANSFER.
--- NOTE | 2016-09-19 11:10 | NUR ---
ADMITTED 81 YEAR OLD FEMALE FROM ER, VIA GURNEY, WITH DX SEVERE SEPSIS, PT AAOX1, ABLE TO FOLLOW SIMPLE COMMANDS, SEVERE LEFT SIDED WEAKNESS, STANLEY CATHETER IN PLACE, BLANCHABLE REDNESS ON THE LEFT AND RIGHT HIP, VITALS STABLE, ORIENTED PT IN THE ROOM, USE OF CALL LIGHT, SAFETY/FALL PRECAUTION ENFORCED. MRSA SWAB COLLECTED. CALL LIGHT WITHIN REACH, WILL CONTINUE TO MONITOR.
--- NOTE | 2016-09-19 13:20 | NUR ---
PT IS SLEEPING AT THIS TIME, FAMILY MEMBERS AT BEDSIDE, UPDATED ON PT CONDITION, ALL QUESTIONS ANSWERED, CALL LIGHT WITHIN REACH, WILL CONTINUE TO MONITOR.
[2016-09-19] MEDS ORDERED: ALBUTEROL SULFATE/IPRATROPIU 3 ML SOL IH PRN (14:20)
[2016-09-19] MEDS ORDERED: hePARIN / DEXT 5% PREMIX 250 ML IV SCH ×2 (14:20→16:00)
[2016-09-19] MEDS ORDERED: HEPARIN PER PHARMACY MC PRN (14:20)
[2016-09-19] MEDS: NACL 0.9% 1,000 ML IV SCH ×2 (14:52→22:43)
[2016-09-19] MEDS ORDERED: SODIUM POLYSTYRENE 15 GM/60 ML UDBTL PO SCH (15:00)
--- NOTE | 2016-09-19 15:55 | NUR ---
NEW IV STARTED ON RIGHT FOREARM 24G. PT TOLERATED WELL.
[2016-09-19 16:00] VITALS: BP 92/43
--- NOTE | 2016-09-19 16:50 | NUR ---
NOTIFIED DR. HUMPHREYS REGARDING PT'S HEART RATE IN 120'S, ORDERS RECEIVED TO INCREASE FLUID INFUSION TO 150ML/HR. WILL CARRY OUT NEW ORDER.
--- NOTE | 2016-09-19 17:20 | NUR ---
STARTED HEPARIN DRIP AT 6ML/HR.
--- NOTE | 2016-09-19 19:05 | NUR ---
ENDORSED PT TO HALLIE REED. FOR CONTINUITY OF CARE. PT IS STABLE AT THIS TIME.
--- NOTE | 2016-09-19 19:05 | NUR ---
RECEIVED PT FROM PT BEDSIDE FROM MARGARITA STERLING FOR CONTINUITY OF CARE. PT NOTED IN BED, LETHARGIC AND ON ROOM AIR WITH OXYGEN SATURATION AT 99%.
--- NOTE | 2016-09-19 19:39 | NUR ---
PT HAD SMALL BM NOTED, DARK BROWN AND SOFT AT THIS TIME.
--- NOTE | 2016-09-19 19:40 | NUR ---
SHIFT ASSESSMENT DONE AT THIS TIME. PT NOTED LETHARGIC AND SEVERE WEAKNESS, PT DX WITH SEVERE SEPSIS. FURNACE TAPPER AT BEDSIDE, PROVIDING TURING TO PT. SKIN ASSESSMENT DONE, SACRAL REDNESS NOTED WITH BLANCHABLE REDNESS AND LEFT HIP REDNESS NOTED BLANCHABLE. WHEN TURNED PT NOTED SATURATION DROPPING, DR. HUMPHREYS AT BEDSIDE. AWARE OF PT CONDITION AND VITAL SIGNS. BP NOTED 73/35, HR 115, AND TEMPERATURE 97.8F. RT CALLED TO PT BEDSIDE, WILL PLACE OXYGEN. NEW ORDERS RECEIVED BY DR. HUMPHREYS. PT ON CONTINUOUS PULSE OX. MONITOR.
--- NOTE | 2016-09-19 19:41 | NUR ---
IV ACCESS NOTED TO RT WRIST #24G PATENT AND INTACT WITH HEPARIN DRIP AT 600ML/HR. OTHER IV ACCESS TO LEFT HAND #22G, PATENT AND INTACT WITH NS INFUSING AT 150ML/HR.
--- NOTE | 2016-09-19 19:51 | NUR ---
STARTED BOLUS OF NS 1L PER DR. HUMPHREYS ORDERS.
--- NOTE | 2016-09-19 19:57 | NUR ---
RT AT BEDSIDE, PT PLACED ON NON-REBREATHER MASK.
--- NOTE | 2016-09-19 19:58 | NUR ---
PT STARTED DESATURATING, PLACED ON 100% NRB AT THIS TIME, PT SATURATION IS 100%, DR HUMPHREYS PRESENT AT BEDSIDE. PT RESPONSE AWAKE, TACHYPNEIC, LOW BP. RN AT BEDSIDE.
[2016-09-19 20:00] VITALS: BP 73/35
--- NOTE | 2016-09-19 20:02 | NUR ---
DR. HUMPHREYS AT BEDSIDE, ASSESSING PT. PT PB NOW NOTED AT 86/45, 100% SATURATION ON NON-REBREATHER.
--- NOTE | 2016-09-19 20:21 | NUR ---
SPOKE TO DR. GONZALEZ AT PT BEDSIDE AWARE OF PT CONDITION. SEEING PT AT BEDSIDE. RECEIVED ORDER FROM LISA TO DISCONTINUE HEPARIN, AWARE OF TROPONIN LEVELS AND PT CONDITION. ALSO SPOKE TO PT PERSON TO NOTIFY CARLOS LUGO PT DAUGHTER IN LAW AT [phone], AWARE OF PT CONDITION, STATED SHE WILL BE IN SOON POSSIBLE.
--- NOTE | 2016-09-19 20:50 | NUR ---
IV FOUND LEAKING TO LEFT HAND #22G, DISCONTINUE. CANNULA INTACT. STARTED NEW IV TO LEFT FA #22G, PATENT AND INTACT.
[2016-09-19] MEDS: levETIRAcetam 500 MG TAB PO SCH (21:00)
[2016-09-19] MEDS: MONTELUKAST SODIUM 10 MG TAB PO SCH (21:00)
[2016-09-19] MEDS: SACCHAROMYCES 250 MG CAP PO SCH (21:00)
--- NOTE | 2016-09-19 21:00 | NUR ---
CARLOS LUGO (DAUGHTER IN LAW) AT PT BEDSIDE AT THIS TIME. PER CARLOS LUGO WANTS PT DNR. DR GONZALEZ AT BEDSIDE, PLACE NEW ORDER FOR DNR.
[2016-09-19] MEDS: PIPER/TAZO 2.25GM/D5W PREMIX 50 ML IV SCH (21:07)
[2016-09-19 21:12] VITALS: BP 106/49
--- NOTE | 2016-09-19 21:12 | NUR ---
BLOOD PRESSURE IS NOW 106/49, HR 113, NOTED 100% OXYGEN SATURATION ON 15L NON REBREATHER MASK. FAMILY STILL AT BEDSIDE.
--- NOTE | 2016-09-19 21:30 | NUR ---
SPOKE TO LUZ ELENA MACK (PT SON) ON PHONE AT PT BEDSIDE, ALSO WITH CARLOS LUGO (DAUGHTER IN LAW) ALSO AT BEDSIDE, BOTH AGREED TO KEEP PT DNR AT THIS TIME.
--- NOTE | 2016-09-19 21:53 | NUR ---
DR. ATKINSON AWARE OF PT CONDITION IS UNSTABLE, AWARE OF PT NOW A DNR AND KOMAL AWARE, ALSO DISCONTINUED HEPARIN DRIP. ALSO INFORMED OF TROPONIN LEVEL IS NOW 0.189. NO ORDERS RECEIVED.
--- NOTE | 2016-09-19 22:14 | NUR ---
PT OXYGEN SATURATION NOTED 97% AT THIS TIME ON NON REBREATHER 15L. WILL CONTINUE TO MONITOR.
[2016-09-20] VITALS (53 sets, daily range): BP systolic 67–170; BP diastolic 26–113
--- NOTE | 2016-09-20 00:02 | NUR ---
PT BP STILL LOW 88/55, HR IS 113, PT IS AFEBRILE 99.4, 96% 15L NON REBREATHER IN PLACE, AND RR 30. IV STILL INTACT. CALL LIGHT WITHIN REACH. WILL CONTINUE TO MONITOR.
--- NOTE | 2016-09-20 00:34 | NUR ---
BLOOD PRESSURE NOW IS 96/46, HR 90, AND OXYGEN SATURATION 97%.
--- NOTE | 2016-09-20 01:38 | NUR ---
NOTED PT BP NOW 138/101, HR 112, OXYGEN SATURATION 100% ON NON REBREATHER. WILL CONTINUE TO MONITOR PT.
--- NOTE | 2016-09-20 01:50 | NUR ---
VITAL SIGNS NOW IS BP 116/76, HR 109, RR 48, AND PULSE OX. 99%, NON REBREATHER STILL IN PLACE.
--- NOTE | 2016-09-20 04:03 | NUR ---
CALLED CARLOS LUGO (PERSON TO NOTIFY) AT THIS TIME INFORMED HER OF PT CONDITION NOT IMPROVING, SUGGESTED TO COME IN.
[2016-09-20] MEDS ORDERED: NACL 0.9% 1,000 ML IV SCH ×2 (04:10→10:35)
--- NOTE | 2016-09-20 04:10 | NUR ---
DR. ATKINSON IS ALSO AWARE OF PT URINE OUTPUT IS LOW, NOTED LESS THAN 50ML ALL NIGHT.
--- NOTE | 2016-09-20 04:10 | NUR ---
SPOKE TO DR. Shraddha ATKINSON REGARDING PT BLOOD PRESSURE STILL LOW 69/57. NEW ORDER RECEIVED TO BOLUS PT WITH 1L OF NS.
--- NOTE | 2016-09-20 04:29 | NUR ---
FRYER OPERATOR BEDSIDE, CHANGED PT NOTED, LARGE LOOSE STOOL, BROWN.
[2016-09-20] MEDS ORDERED: NACL 0.9% 1,000 ML IV ONE ×2 (04:45→05:55)
[2016-09-20] MEDS: PIPER/TAZO 2.25GM/D5W PREMIX 50 ML IV SCH ×2 (04:47→13:07)
--- NOTE | 2016-09-20 04:50 | NUR ---
BOLUS STILL INFUSING, PT BP NOW 95/56, HR 107 AND OXYGEN SATURATION 97%, NON REBREATHER STILL IN PLACE.
--- NOTE | 2016-09-20 05:15 | NUR ---
PT BP NOW NOTED 105/85, HR 105, AND OXYGEN SATURATION LEVEL 94% ON NON-REBREATHER.
[2016-09-20] MEDS: NACL 0.9% 1,000 ML IV SCH ×3 (05:40→19:05)
--- NOTE | 2016-09-20 05:50 | NUR ---
PT BLOOD PRESSURE AT THIS TIME, 94/66, HR 104, OXYGEN SATURATION 97% ON NON-REBREATHER. SPOKE TO DR. HUMPHREYS, HERE ON UNIT, MADE AWARE OF PT MINIMAL URINE OUTPUT OF 75ML AND PT HAD BOWEL MOVEMENTS THROUGHOUT BUFFING WHEEL OPERATOR. ALSO MADE AWARE OF PT FLUCTUATING BLOOD PRESSURES. PHYSICIAN TO SEE PT.
[2016-09-20] MEDS ORDERED: VANCOMYCIN PER PHARMACY MC PRN (05:55)
--- NOTE | 2016-09-20 06:00 | NUR ---
MADE DR. HUMPHREYS AWARE PT AT RISK FOR ASPIRATION FOR PO MEDICATIONS, NON-ADMINISTERED THROUGHOUT PM SHIFT. PER DR. HUMPHREYS, PT WILL HAVE SWALLOW EVALUATION.
--- NOTE | 2016-09-20 06:04 | NUR ---
DR. JOHANSEN AT BEDSIDE, NEW ORDER FOR PT TO BE TRANSFERRED TO ICU.
--- NOTE | 2016-09-20 06:06 | NUR ---
INFORMED FAMILY CARLOS (DAUGHTER IN LAW) PT WILL TRANSFER TO ICU.
--- NOTE | 2016-09-20 06:23 | NUR ---
ENDORSED PT TO ALONZO STERLING IN ICU FOR PT CONTINUITY OF CARE.
--- NOTE | 2016-09-20 06:24 | NUR ---
PT TRANSFERRED AT THIS TIME TO ICU.
--- NOTE | 2016-09-20 06:25 | NUR ---
PATIENT WITH STANLEY CATHETER, NO URINE OUTPUT NOTED.
--- NOTE | 2016-09-20 06:25 | NUR ---
PATIENT RECEIVED FROM MS/TELE, PER BRIANNA COBIAN/RN REPORT, PATIENT WILL BE TRANSFERRED TO ICU D/T SEPSIS. PATIENT IS DNR, LETHARGIC, ST ON THE MONITOR, VS 97.6-101-145/95-26. SKIN ASSESSMENT DONE AND NOTED REDNESS LEFT HIP, BUTTOCKS, PERIAREA, COCCYX WITH SMALL SUPERFICIAL OPEN AREA. PATIENT RECEIVED ON 15L NRM, SATURATING 85%-89%, EXTREMITIES FLACCID. PATIENT HAS LARGE LIQUID STOOL, WASHED AND CLEANED, REPOSITIONED, HOB ELEVATED.
[2016-09-20] MEDS ORDERED: PANTOPRAZOLE 40 MG TABEC PO SCH (06:30)
--- NOTE | 2016-09-20 07:28 | NUR ---
abg drawn on rb without incident and at [address] allen and given results of abg and changed pts fio2 to venti mask at 50% rn willie notified of changes made
--- NOTE | 2016-09-20 07:28 | NUR ---
ABG RESULTS DRAWN ON 09-20-16 AT 0728 NOC RT UNABLE TO OBTAIN ABG
--- NOTE | 2016-09-20 07:36 | NUR ---
DR. JARROD MENDOZA WAS INFORMED AT 0708 THAT PATIENT'S BUN 89, TROPONIN #3 0.204, INFORMED MD BELLA THAT PATIENT'S SATURATION IS 85%-89% ON 15LNRM ON ADMISSION, NO NEW ORDER RECEIVED FROM DR. Carlos MENDOZA. REPORT GIVEN TO KIM VELAZCO RN.
--- NOTE | 2016-09-20 07:40 | NUR ---
RECEIVED PT FROM FOLDING MACHINE SETTER RN. PT IS AWAKE,OPEN EYES SPONTANEOUSLY.ORIENTED PT IN ICU. PT IS LETHARGIC AND HAS SEVERE LEFT SIDE WEAKNESS. BEDSIDE MONITOR SHOWS SR. PT ON NON REBREATHER 15L. ABDOMEN SOFT WITH ACTIVE BOWEL SOUNDS. SKIN NON INTACT( SEE WOUND ASSESSMENT). STANLEY CATH IN PLACE WITHOUT URINE OUTPUT. SAFETY/ FALL PRECAUTION IN PLACE.INITIAL ASSESSMENT DONE. PT CAN NOT VERBALIZE UNDERSTANDING. WILL CONTINUE TO MONITOR.
--- NOTE | 2016-09-20 07:45 | NUR ---
UNABLE TO APPRECIATE BOTH TIBIAL ,PEDAL PULSES. POPLITEAL PULSE IS ABLE TO HEAR ONE SIDE ONLY BY DOPPLER. FEMORAL PULSES PALPABLE. BOTH LOWE AND UPPER EXTREMITIES ARE COOL TO TOUCH.
--- NOTE | 2016-09-20 08:40 | NUR ---
PATIENT HAS BEEN SCREENED AND CATEGORIZED HIGH NUTRITION RISK. PATIENT WILL BE SEEN WITHIN 1-2 DAYS OF ADMISSION. 09/20/16-09/21/[address]
--- NOTE | 2016-09-20 08:50 | NUR ---
NOTIFIED REGARDING WOUND ON SACRAL AREA AND PT UNABLE TO SWALLOW, DUE PO MEDS UNABLE TO GIVE.WILL FOLLOW UP.
[2016-09-20] MEDS ORDERED: HYDRAGUARD CREAM TP PRN (08:55)
[2016-09-20] MEDS: SACCHAROMYCES 250 MG CAP PO SCH ×2 (09:00→21:00)
[2016-09-20] MEDS ORDERED: ATORVASTATIN 20 MG TAB PO SCH (09:00)
[2016-09-20] MEDS ORDERED: PROBIOTIC SCREEN 1 EA MISC MC PRN (09:00)
[2016-09-20] MEDS: levETIRAcetam 500 MG TAB PO SCH (09:00)
[2016-09-20] MEDS ORDERED: DOCUSATE SODIUM 100 MG GELCAP PO SCH ×2 (09:00)
--- NOTE | 2016-09-20 10:00 | NUR ---
UNABLE TO DO C DIFF. PT. WAS GIVEN KAYEXALATE 09/19/[address] LETTY GAINES.
--- NOTE | 2016-09-20 10:30 | NUR ---
WOUND CARE EVALUATION NOTES: REASON FOR EVALUATION: SACRAL WOUND COMPLETE SKIN ASSESSMENT DONE ON THIS 81 Y/O FEMALE PATIENT FROM [facility], WITH INITIAL DIAGNOSIS OF SEVERE SEPSIS AND ALTERED MENTAL STATUS. PAST MEDICAL HISTORY INCLUDE CVA WITH LEFT SIDED WEAKNESS, COPD AND DEMENTIA. ALL ABOVE INFORMATION WAS OBTAINED FROM THE ADMISSION H&P. LABS ARE WBC 33.6, H/H 13.9/41.7, GLUCOSE 101, ALBUMIN 2.3, PT/INR 12.8/1.3 AND PTT 26.9. CURRENT MEDS INCLUDE VANCOMYCIN, HEPARIN, ZOSYN, NORCO AND MORPHINE. PATIENT IS LETHARGIC AT THIS TIME, BUT ABLE TO RESPOND TO PAINFUL STIMULI. SKIN COOL TO TOUCH, TOENAILS WNL, NO EDEMA, NO HAIR GROWTH AND UNABLE TO PALPATE BILATERAL PEDAL PULSES. BILATERAL FEET WITH MOTTLING NOTED. BOWEL INCONTINENT TO GREENISH LOOSE STOOLS IN MODERATE AMOUNT. FC 14FR PATENT AND INTACT TO YELLOW URINE IN MODERATE AMOUNT. NEEDS MAX ASSISTANCE IN TURNING. INITIAL PLAN OF CARE AND PRESSURE PREVENTIVE MEASURES DISCUSSED, UNABLE TO VERBALIZE UNDERSTANDING. INTEGUMENTARY: SACRALCOCCYX TO PERIAREA - FUNGAL LIKE RASH LUE - ECCHYMOSIS - PURPLE RECOMMENDATIONS: -CLEANSE SACRALCOCCYX TO PERIAREA WITH MILD SOAP AND WATER, PAT DRY, APPLY ANTIFUNGAL CLEAR OINT BIDWC AND PRN WITH SOILING. LEAVE OPEN TO AIR -TURN AND REPOSITION PATIENT Q2H TO LEFT AND RIGHT SIDE AT ALL TIMES -ASSESS AND MONITOR SKIN CONDITION DURING POSITION CHANGE, PLEASE PAY PARTICULAR ATTENTION TO SACRALCOCCYX, ELBOWS AND HEELS -OFFLOAD BILATERAL HEELS BY PLACING PILLOWS UNDER CALVES AT ALL TIMES, UNLESS OTHERWISE CONTRAINDICATED. -KEEP SKIN CLEAN AND DRY AT ALL TIMES. RECOMMENDATIONS DISCUSSED WITH PRIMARY RN AND RESIDENT PHYSICIAN, DR. SAENZ. WILL FOLLOW UP PATIENT Q 7 DAYS AND PRN. PLEASE CONTACT [facility] FOR ANY CONCERNS, QUESTIONS AND CHANGES IN WOUND CONDITION.
--- NOTE | 2016-09-20 10:35 | NUR ---
MONITOR SHOWS BP 50/23. RECHECKED BP 80/41. NOTIFIED . WILL FOLLOW UP.
[2016-09-20] MEDS ORDERED: levETIRAcetam 1,000 MG in NACL 0.9% 100 ML IV SCH ×2 (11:00→21:00)
[2016-09-20] MEDS ORDERED: ANTIFUNGAL CLEAR OINTMENT TP SCH ×2 (11:00→21:00)
[2016-09-20] MEDS ORDERED: PANTOPRAZOLE 40 MG INJ VIAL IVP SCH (11:00)
--- NOTE | 2016-09-20 11:10 | NUR ---
OFFICE COMMUNICATION PROFESSOR note (attempted bedside swallow evaluation) 11:10. OFFICE COMMUNICATION PROFESSOR came to provide bedside swallow evaluation; however, pt currently lethargic and on O2 mask with visibly increased respiration rates. OFFICE COMMUNICATION PROFESSOR d/w battery charger (Edith). pot filler in agreement with OFFICE COMMUNICATION PROFESSOR not attempting to complete bedside swallow evaluation at this time. Recommend: 1) strict NPO until pt's alertness becomes adequate to participate with bedside swallow evaluation safely, as appropriate. 2) consider alternative method(s) of nutrition/hydration/medication vs hospice/comfort measures, as appropriate, until pt's alertness becomes adequate to participate with bedside swallow evaluation safely 3) physician to reorder bedside swallow evaluation once pt's alertness becomes adequate to participate with bedside swallow evaluation safely, as appropriate. PVE
--- NOTE | 2016-09-20 11:58 | NUR ---
BP 120/65 AFTER GIVING 0.9% NS [address] SAENZ. SUCTIONED PT WITH COFFEE GROUND SECRETION. DR. SAENZ AWARE. WILL FOLLOW UP.
[2016-09-20] MEDS: NOREPINEPHRINE 4 MG in DEXTROSE 5% 250 ML IV PRN ×3 (13:01→23:27)
--- NOTE | 2016-09-20 13:30 | NUR ---
AND AT BEDSIDE STARTED CENTRAL LINE INSERTION. ULTRASOUND GUIDED.
--- NOTE | 2016-09-20 14:35 | NUR ---
CENTRAL LINE INSERTION DONE. CALLED RADIOLOGY TO CHECK PLACEMENT.
--- NOTE | 2016-09-20 14:40 | NUR ---
PT DESATING , O2 SAT 83%. CALLED RT.
--- NOTE | 2016-09-20 15:00 | NUR ---
CAME IN TO SEE PT. UPDATED PT CONDITION. AWARE PT O2 SAT LOW EVEN PT ON 100% NON REBREATHER.
--- NOTE | 2016-09-20 15:00 | NUR ---
CHANGE TO NRB SPO2 93 PT WAS DESATING
--- NOTE | 2016-09-20 15:21 | NUR ---
NOTIFIED PHARMACY HEPARIN LOCK FLUSH WAS NOT SCANNED DURING CENTRAL LINE INSERTION. AND HEPARIN LOCK FLUSH IN [facility] D/C ED ALREADY. PER PHARMACY, JUST DOCUMENT IN NURSING NOTES.
--- NOTE | 2016-09-20 16:12 | NUR ---
NOTIFIED RT. PT ON 100% NON REBREATHER BUT O2 SAT IS STILL BETWEEN 81%-87%.
--- NOTE | 2016-09-20 16:40 | NUR ---
09/20/16 RD INITIAL ASSESSMENT COMPLETED PLEASE REFER TO NUTRITION ASSESSMENT UNDER CARE ACTIVITY FOR ESTIMATED NUTRITIONAL NEEDS. RD RECOMMENDATIONS: 1. RECOMMEND NPO RECOMMENDED BY SPEECH THERAPIST IN SWALLOW EVALUATION 2. PLEASE CONSULT RD PRN FOR NUTRITION SUPPORT NEEDS 3. RD WILL F/U 2-3 DAYS; HIGH RISK. QI TY RD
--- NOTE | 2016-09-20 16:45 | NUR ---
PT'S SON LUZ ELENA AT BEDSIDE. STATES HE LIVES IN [place]. PER LUZ ELENA IT IS OKAY TO GET CONSENTS FROM ALEXUS LUGO (PT'S DAUGHTER IN LAW IF WE ARE UNABLE TO GET IN TOUCH WITH HIM.
[2016-09-20] MEDS ORDERED: FLUCONAZOLE 200 MG/NS PREMIX 100 ML IV SCH (18:00)
--- NOTE | 2016-09-20 18:12 | NUR ---
PT IS UNRESPONSIVE TO NAME STIMULI. BOTH LOWER AND UPPER EXTREMITIES ARE COOL TO TOUCH. REPOSITIONED PT TO MAKE PT COMFORTABLE, OFF LOAD PRESSURE AREA.
--- NOTE | 2016-09-20 19:10 | NUR ---
RECEIVED REPORT FROM HALLIE ALVAREZ AT BEDSIDE. PT IS AWAKE WITH EYES OPEN, NON-VERBAL, NOT ABLE TO FOLLOW COMMANDS. FLACC 0. NO S/S OF SOB/DISTRESS NOTED, BREATHING EVEN AND UNLABORED, DIMINISHED LUNG SOUNDS, ON 100% NON-REBREATHER MASK, O2 SAT BASELINE 89% TO 91%, MD AWARE PER REPORT. NGT ON RIGHT NARE, WITH 0 RESIDUAL. NO FEEDING ORDER AT THIS TIME. CENTRAL LINE ON LEFT IJ WITH TRIPLE LUMEN, C/D/I, PATENT WITH GOOD BLOOD RETURN, RUNNING LEVOPHED AT 15MG/MIN AND NS AT 150ML/HR. SR ON CHILDHOOD TEACHER, ABDOMEN SOFT WITH ACTIVE BOWEL SOUNDS. AFEBRILE, SKIN IS DRY AND COLD TO TOUCH, NON INTACT( SEE WOUND ASSESSMENT). STANLEY CATH IN PLACE, OLIGURIA PER REPORT. GENERALIZED WEAKNESS ON ALL EXTREMITIES, SAFETY/ FALL PRECAUTION IN PLACE, WILL CONTINUE TO MONITOR.
--- NOTE | 2016-09-20 19:10 | NUR ---
BEDSIDE REPORT GIVEN TO RISSA STERLING.
--- NOTE | 2016-09-20 20:00 | NUR ---
NO CHANGE OF CONDITION AT THIS TIME, POSITION CHANGE FOR OFF LOAD PRESSURE.
--- NOTE | 2016-09-20 20:50 | NUR ---
PAGED DR. ATKINSON IF CAN USE NGT TO GIVE PO MEDICATION, DR. ATKINSON SAID IT IS OK TO HOLD NIGHT TIME PO MEDICATION AND CLAMP NGT AT THIS TIME.
[2016-09-20] MEDS ORDERED: MEROPENEM 500 MG in NACL 0.9% 50 ML IV SCH (21:00)
[2016-09-20] MEDS: MONTELUKAST SODIUM 10 MG TAB PO SCH (21:00)
--- NOTE | 2016-09-20 21:00 | NUR ---
FAMILY AT BEDSIDE.
--- NOTE | 2016-09-20 21:05 | NUR ---
DR. MARTÍNEZ CAME TO EVALUATE PATIENT AT BEDSIDE, NO NEW ORDER AT THIS TIME.
--- NOTE | 2016-09-20 21:10 | NUR ---
SCHEDULED IV MEDICATION GIVEN, PATIENT TOLERATED WELL. HOLD PO MEDICATION PER MD ORDER AT THIS TIME.
--- NOTE | 2016-09-20 22:00 | NUR ---
NO CHANGE OF CONDITION AT THIS TIME, STILL ON LEVOPHED, POSITION CHANGED FOR OFF LOAD PRESSURE.
--- NOTE | 2016-09-20 22:40 | NUR ---
AGONAL RHYTHM SHOWING ON PRIMARY HEALTH CARE NURSE, PT STILL MAINTAIN DNR/DNI STATUS, PT'S FAMILY INFORMED (CARLOS LUGO), STATED WILL COME MARTA.
--- NOTE | 2016-09-20 22:50 | NUR ---
FAMILY MEMBERS AT BEDSIDE, PATIENT HAS NO PAUSE, NO BP, STILL AGONAL RHYTHM.
--- NOTE | 2016-09-20 23:50 | NUR ---
FAMILY MEMBERS LEFT, ASKED ABOUT MORTUARY CHOICE, PATIENT'S FAMILY MEMBERS STATED WOULD LET US KNOW AFTER THEY DECIDED.
--- NOTE | 2016-09-21 | NUR ---
NO BP, NO PAUSE, BUT AGONAL RHYTHM ON CLIENT RELATION SPECIALIST.
--- NOTE | 2016-09-21 00:12 | NUR ---
PT HAS NO BP, NO PULSE, NO BREATHING, ASYSTOLE ON FIELD EDUCATION COORDINATOR. PT IS AT 0012, INFORMED NURSING FLEET SERVICE CLERK SILVINA PATEL, AND PRONOUNCED THE TIME OF .
--- NOTE | 2016-09-21 00:20 | NUR ---
REPORTED TO [employer] OF THE PATIENT'S , CASE #[id number], PT IS NOT QUALIFIED [facility] AT THIS TIME.
--- NOTE | 2016-09-21 00:26 | NUR ---
INFORMED PT'S DAUGHTER IN LAW, CARLOS LUGO ABOUT THE TIME OF PT'S , NO AUTOPSY REQUESTED BY FAMILY AT THIS TIME. CARLOS SAID ," IT IS OK TO RELEASE PT'S BODY TO [facility]." TELEPHONE CONSENT BY CARLOS LUGO, WITNESS BY BOB HERNANDEZ RN AND KALI SALDIVAR RN.
--- NOTE | 2016-09-21 00:38 | NUR ---
MARCI TANG NOTIFIED OF PATIENT'S , BRANDIN GRIFFIN WILL SIGN THE CERTIFICATE.
--- NOTE | 2016-09-21 00:40 | NUR ---
ADMITTING JOSH, NOTIFIED THE OF PATIENT.
--- NOTE | 2016-09-21 01:13 | NUR ---
REPORT ANIME ARTIST DEPUTY KEN OF PATIENT'S , BODY RELEASED BY ANIME ARTIST, CASE NUMBER IS [id number].
--- NOTE | 2016-09-21 01:24 | NUR ---
NOTIFIED [facility] TO DEPUTY SHERIFF CUSTODY PATIENT'S BODY.
--- NOTE | 2016-09-21 02:00 | NUR ---
MORTUARY CARE PROVIDED, REMOVED CENTRAL LINE, REMOVED NGT, REMOVED STANLEY CATHETER, REMOVED JEWELRY (2 RINGS, 1 BRACELET) CARLOS LUGO INFORMED ABOUT PATIENT'S BELONGS, WILL LEAD ADVISOR IN THE MORNING. PT'S BODY IS READY TO LEAD ADVISOR.
[2016-09-21] MEDS ORDERED: VANCOMYCIN 500 MG in DEXTROSE 5% 100 ML IV SCH (09:00)
[2016-09-21] MEDS ORDERED: PANTOPRAZOLE 40 MG INJ VIAL IVP SCH (09:00)
== END 2016-09-21 02:50 | disposition expired | DRG 871 ==
LOC: MED 08:38 → MTU 10:35 → MLD 09-20 06:51 → MIC 09-20 06:56 → OBSVTOIN 09-20 10:08
PROVIDERS: ADMIT Family Medicine; ATTEND Family Medicine
PROC: 02HV33Z Insertion of Infusion Device into Superior Vena Cava, Percutaneous Approach (ICD-10-PCS; principal; 2016-09-20)
PROC: B548ZZA Ultrasonography of Superior Vena Cava, Guidance (ICD-10-PCS; 2016-09-20)
DX: A41.9 Sepsis, unspecified organism (principal); R65.21 Severe sepsis with septic shock; J96.21 Acute and chronic respiratory failure with hypoxia; G93.41 Metabolic encephalopathy; N17.0 Acute kidney failure with tubular necrosis; E43 Unspecified severe protein-calorie malnutrition; I69.354 Hemiplegia and hemiparesis following cerebral infarction affecting left non-dominant side; Z68.1 Body mass index [BMI] 19.9 or less, adult; N39.0 Urinary tract infection, site not specified; Z66 Do not resuscitate; E02 Subclinical iodine-deficiency hypothyroidism; E86.0 Dehydration; E87.5 Hyperkalemia; F01.50 Vascular dementia, unspecified severity, without behavioral disturbance, psychotic disturbance, mood disturbance, and anxiety; E83.39 Other disorders of phosphorus metabolism; J44.9 Chronic obstructive pulmonary disease, unspecified; Z87.891 Personal history of nicotine dependence; Z79.82 Long term (current) use of aspirin; Z79.899 Other long term (current) drug therapy
CPT/HCPCS: 51702; 96365; 99285; G0378